=== PATIENT | male | born 1995 | race Caucasian/White ===

== ENCOUNTER 2016-12-01 19:58 | Emergency (ER) | payer MEDICAID ==
[~2016-12-01] VITALS: Ht 177.8 cm; Wt 59.0 kg
[2016-12-01] MEDS ORDERED: SODIUM CHLORIDE 0.9% 1,000 ML IV ONE (21:40)
[2016-12-01] MEDS ORDERED: ONDANSETRON HCL 4MG/2ML VIAL IV ONE (21:45)
[2016-12-01] MEDS ORDERED: FAMOTIDINE 20MG/2ML VIAL IV ONE (21:45)
[2016-12-01 21:59] LABS: BASOPHILS % 0.2 % (0.0-2.0); EOSINOPHILS % 0.6 % (0.0-5.0); HEMATOCRIT. 45.1 % (42.0-52.0); HEMOGLOBIN. 15.4 g/dL (14.0-18.0); LYMPHOCYTES % 14.2 % (20.0-50.0); MEAN CORPUSCULAR HEMOGLOBIN 31.8 pg (28.0-32.0); MEAN CORPUSCULAR HGB CONC 34.1 g/dL (31.0-37.0); MEAN CORPUSCULAR VOLUME 93.2 fL (80.0-94.0); MEAN PLATELET VOLUME 7.8 fl (7.4-10.4); PLATELET 301 x1000/uL (130-400); RED BLOOD CELL COUNT 4.84 mill/uL (4.7-6.1); RED CELL DISTRIBUTION WIDTH 13.5 % (11.6-14.6); WHITE BLOOD COUNT 10.3 x1000/uL (4.5-11.0)
[2016-12-01 22:01] LABS: CHLORIDE 106 mEq/L (98-107); INDEX HEMOLYSI 1 (1-3); INDEX ICTERIC 1 (1-4); INDEX LIPEMIC 1 (1-3)
[2016-12-01 22:06] LABS: INR 1.1; PARTIAL THROMBOPLASTIN TIME 22.9 sec (24.0-34.0); PROTHROMBIN TIME 11.6 sec
[2016-12-01 22:10] LABS: ALANINE AMINOTRANSFERASE 18 IU/L (13-61); ALBUMIN 4.5 g/dL (3.4-5.0); ANION GAP 13; CALCIUM 8.8 mg/dL (8.5-10.1); CARBON DIOXIDE 30 mEq/L (21-32); ETHANOL BLOOD 267 mg/dL; LIPASE 112 IU/L (73-393); UREA NITROGEN BLOOD 7 mg/dL (7-21); eGFR > 60 mL/min (>60)
[2016-12-01 23:45] VITALS: BP 125/68
== END 2016-12-02 01:29 | disposition home or self-care (01) ==
LOC: ER 20:00
DX: F10.229 Alcohol dependence with intoxication, unspecified (principal); F12.10 Cannabis abuse, uncomplicated; Y90.8 Blood alcohol level of 240 mg/100 ml or more
CPT/HCPCS: 36415; 80053; 83690; 85025; 85610; 85730; 96361; 96374; 96375; 99284; G0482; J2405; J3490; J7030